=== PATIENT | male | born 1975 | race Two or more races ===

== ENCOUNTER 2017-01-17 08:17 | Observation (INO) | payer OTHER ==
[2017-01-17] MEDS ORDERED: BUPIVACAINE 0.25% 30 ML SDV ONE (08:39)
[2017-01-17] MEDS ORDERED: LIDOCAINE 1% 5 ML SDV ID PRN (08:52)
[2017-01-17] MEDS ORDERED: LR 1,000 ML IV ONE (08:52)
[2017-01-17] MEDS ORDERED: MIDAZOLAM 2 MG/2 ML VIAL ONE (10:02)
[2017-01-17] MEDS ORDERED: fentaNYL 100 MCG/2 ML INJ ONE ×3 (10:09→12:32)
[2017-01-17] MEDS ORDERED: ONDANSETRON 4 MG/2 ML VIAL IVP PRN (10:19)
[2017-01-17] MEDS ORDERED: HYDROCOD/APAP 7.5/325 IN 15ML UDCUP PO PRN (10:19)
[2017-01-17] MEDS ORDERED: PROPOFOL 200 MG/20 ML VIAL ONE (10:27)
--- NOTE | 2017-01-17 12:12 | GOP ---
[f rep st] OPERATIVE REPORT DATE OF OPERATION: 01/17/2017 SURGEON: Larry Guajardo MD ANESTHESIA: General endotracheal. PREOPERATIVE DIAGNOSIS: Obstructive sleep apnea. POSTOPERATIVE DIAGNOSIS: Obstructive sleep apnea. PROCEDURE PERFORMED: Tonsillectomy with uvulopalatopharyngoplasty. FINDINGS: Tonsillar hypertrophy with redundant pharyngeal soft tissues treated by tonsillectomy wit h uvulopalatopharyngoplasty. ESTIMATED BLOOD LOSS: 200 mL. DESCRIPTION OF PROCEDURE: The patient was placed on the operating table in the supine position. Af ter induction of adequate general endotracheal anesthesia, shoulder roll was placed, sterile eye pad s and head drape were placed. The Lupe-Kervin mouth gag was inserted over the previously placed end otracheal tube with care given to maintain and achieve the correct depth. The Lupe-Kervin mouth gag was then opened. Tonsillar hypertrophy was noted to be with moderately excessive pharyngeal soft t issues. Initially, attention was directed to the tonsillectomy. The right tonsil was grasped with an Allis clamp and retracted medially. Circumferential dissection of the right tonsil was performed using a needle tip Bovie electrocautery. Hemostasis was obtained throughout the dissection by use of Bovie electrocautery as well. The left tonsil was then excised in a manner identical to that of the right. Hemostasis was obtained throughout the left tonsillar fossa by use of Bovie electrocaute ry as well. At this point, tacking sutures were placed along the superior aspect of the anterior an d posterior tonsillar pillar, approximating them bilaterally. Once these had been placed, it was no bulmaro that the redundant pharyngeal mucosa remained, and this was excised as well from the anterior to nsillar mucosa bilaterally. The uvula was then removed utilizing a needle tip Bovie electrocautery. Care was given to avoidance of over-resection of the soft palate so that nasopharyngeal regurgitat ion would not occur. Once or adequate resection of the pharyngeal soft tissues had been completed, attention was directed to closure. Closure of the defect was performed utilizing 2-0 chromic suture s. The anterior and posterior tonsillar curve pillars were reapproximated bilaterally using 2-0 chr omic sutures. The anterior anterior and posterior were approximated utilizing 2-0 chromi c sutures. At this point, the Lupe-Kervin mouth gag was let down for approximately 1 minute and the n reopened. No further bleeding was noted. Infiltration of the soft tissues of the soft palate and tonsillar pillars was performed utilizing 0.25% Marcaine. A total of 15 mL were injected _ the avoidance of intravascular injection. At this point, the Lupe-Kervin mouth gag was let down f or approximately 1 minute further. No bleeding was noted from the injection sites. An orogastric t ube was passed. The gastric contents were aspirated. He was then awakened and transferred to the ostanesthesia recovery area in stable condition. FLUID REPLACEMENT: 800 mL. COMPLICATIONS: None. /[id number]/MODL
[2017-01-17] MEDS ORDERED: HYDROmorphONE/DILAUDID 1 MG/ML SYR ONE (12:32)
[2017-01-17] MEDS: DEXAMETHASONE 4 MG/ML VIAL IVP SCH ×2 (14:15→21:46)
[2017-01-17] MEDS: D5W LR 1,000 ML IV SCH (14:28)
[2017-01-17] MEDS: AMOXICILLIN SUSP 250 MG/5 ML BTL PO SCH ×2 (16:40→21:47)
--- NOTE | 2017-01-17 17:50 | SOAPPROG ---
SOAP Progress Note Assessment/Plan: Pt s/p UPP. Doing well. Pain controlled. O- No bleeding O2 sats maintained. Plan: Pt s/p UPPP, plan for discharge tomorrow 01/17/17 17:45 Objective: Vital Signs Temp Pulse Resp BP Pulse Ox 37.3 C 71 16 132/77 H 94 01/17/17 16:41 01/17/17 16:41 01/17/17 16:41 01/17/17 16:41 01/17/17 16:41 01/16/17 01/17/17 01/18/17 05:59 05:59 05:59 Intake Total 1400 Output Total 100 Balance 1300 ICD10 Worksheet Patient Problems: Problems Problem Status Onset Obstructive sleep apnea Acute - ICD10 Problem Qualifiers (1) Obstructive sleep apnea
[2017-01-18] MEDS: D5W LR 1,000 ML IV SCH (03:19)
[2017-01-18] MEDS: DEXAMETHASONE 4 MG/ML VIAL IVP SCH (06:28)
[2017-01-18 07:48] VITALS: BP 130/83; PULSE 83; RESP 16; TEMP 98; O2SAT 93
--- NOTE | 2017-01-18 08:03 | SOAPPROG ---
SOAP Progress Note Assessment/Plan: Assessment: 41 year old male POD 1 s/p UPPP. Doing well. Has some pain. Not taking much fluid. - Needs to take in fluid prior to leaving -- patient will take pain med now and drink some fluid - He has scripts for home already - Follow-up in 2 weeks with our office -- patient will call to schedule 01/18/17 08:01 Subjective: 41 year old male POD 1 s/p UPPP. Doing well. In pain. Not taking much PO. Objective: Vital Signs Temp Pulse Resp BP Pulse Ox 36.6 C 83 16 130/83 H 93 01/18/17 07:46 01/18/17 07:46 01/18/17 07:46 01/18/17 07:46 01/18/17 07:46 01/17/17 01/18/17 01/19/17 05:59 05:59 05:59 Intake Total 2398 345 Output Total 1300 500 Balance 1098 -155 OP without bleeding Voice strong, no stridor ICD10 Worksheet Patient Problems: Problems Problem Status Onset Obstructive sleep apnea Acute
[2017-01-18] MEDS: AMOXICILLIN SUSP 250 MG/5 ML BTL PO SCH (08:05)
== END 2017-01-18 12:05 | disposition home or self-care (01) ==
LOC: F3N 08:17 → F3E 13:37
PROVIDERS: ADMIT Otolaryngology; ATTEND Otolaryngology
DX: J35.1 Hypertrophy of tonsils (principal); G47.33 Obstructive sleep apnea (adult) (pediatric); R06.83 Snoring
CPT/HCPCS: 42299; 42821; G0378; J1100; J1170; J2250; J2704; J3010